=== PATIENT | male | born 1960 | race Caucasian/White ===

== ENCOUNTER → 2021-10-17 14:23 | Outpatient (BNVA) | payer OTHER, SELFPAY | PROVIDERS: Family Provider Internal Medicine; Visit Provider Podiatrist Foot & Ankle Surgery | DX: B07.0 Plantar wart (principal) | CPT/HCPCS: 17110 ==

== ENCOUNTER → 2021-11-21 14:22 | Outpatient (BNVA) | payer OTHER, SELFPAY | PROVIDERS: Family Provider Internal Medicine; Visit Provider Podiatrist Foot & Ankle Surgery | DX: B07.0 Plantar wart (principal); M79.671 Pain in right foot | CPT/HCPCS: 17110 ==

== ENCOUNTER → 2022-01-02 15:20 | Outpatient (BNVA) | payer OTHER, SELFPAY | PROVIDERS: Family Provider Internal Medicine; Visit Provider Podiatrist Foot & Ankle Surgery | DX: B07.0 Plantar wart (principal); M79.671 Pain in right foot | CPT/HCPCS: 17110 ==

== ENCOUNTER → 2022-03-26 14:45 | Outpatient (BNVA) | payer OTHER, SELFPAY | PROVIDERS: Family Provider Internal Medicine; Visit Provider Podiatrist Foot & Ankle Surgery | DX: B07.0 Plantar wart (principal) | CPT/HCPCS: 99213 ==

== ENCOUNTER → 2023-06-02 09:23 | Outpatient (BNVA) | payer OTHER, SELFPAY | PROVIDERS: Family Provider Internal Medicine; Referring Provider Family Medicine; Visit Provider Surgery | DX: Z12.11 Encounter for screening for malignant neoplasm of colon (principal) | CPT/HCPCS: 99203 ==

== ENCOUNTER 2023-07-24 08:02 | Day surgery (SDC) | payer OTHER, SELFPAY ==
[2023-07-24 08:21] VITALS: BP 127/83; PULSE 69; RESP 18; TEMP 36.6; O2SAT 97; BMI 32.5
[2023-07-24] MEDS: sodium chloride 0.9% 1,000 ML 30 ML IV (08:29)
--- NOTE | 2023-07-24 08:53 | W.PM.OPSFHP ---
Same Day Surgery H&P Indication for Procedure/HPI DATE OF PROCEDURE: July 24, 2023 CHIEF COMPLAINT/INDICATIONFOR SURGICAL PROCEDURE: need for screening colonoscopy PREOP DIAGNOSIS: need for screening colonoscopy PLANNED PROCEDURE: Operation Date: 07/24/23 09:25 Proposed Procedures p 11090 colon G0121 screen colon a risk Z12.11(Not Applicable) - Jalen Catalan MD Medications/Allergies* Home Medications Medication Instructions Recorded Confirmed Type aspirin 81 mg tablet,delayed 81 mg PO DAILY 10/17/21 07/22/23 History release (Adult Aspirin Regimen) ibuprofen 800 mg tablet 800 mg PO Q6H PRN Pain 06/02/23 07/22/23 History Allergies/Adverse Reactions Allergy/AdvReac Type Severity Reaction Status Date / Time Penicillins Allergy resp Verified 07/22/23 09:31 distress Current Medications: Generic Name Dose Route Start Last Admin Trade Name Freq PRN Reason Stop Dose Admin Sodium Chloride 1,000 mls @ 30 mls/hr 07/24/23 08:15 07/24/23 08:29 Sodium Chloride 0.9% IV 07/25/23 08:14 30 mls/hr .Q24H LORNE Administration Pertinent Exam Findings alert, oriented x 3, clear to auscultation bilaterally and regular rate & rhythm Recommendations Surgery/Procedure today Coding Level of Care Code Acute Code for Chg Fwd
--- NOTE | 2023-07-24 08:58 | ANES.PREANE2 ---
Pre-Anesthetic Assessment Height/Weight: Height 1.75 m Weight 99.79 kg Temp Pulse Resp BP Pulse Ox O2 Del Method 97.9 F 69 18 127/83 97 Room Air 07/24/23 08:21 07/24/23 08:21 07/24/23 08:21 07/24/23 08:21 07/24/23 08:21 07/24/23 08:21 Preop Diagnosis: need for screening colonoscopy Operation Date: 07/24/23 09:25 Proposed Procedures p 94537 colon G0121 screen colon a risk Z12.11(Not Applicable) - Jalen Catalan MD Familial anesthetic complications: none Was Beta Tulio taken within 24 hours: N/A Was Clonidine taken within 24 hours: N/A Last intake: Intake Last Liquid Date 07/23/23 Last Liquid Time 22:30 Last Solid Date 07/22/23 Last Solid Time 20:00 Social No alcohol and No tobacco Exam alert, oriented x 3, clear to auscultation bilaterally and regular rate & rhythm Airway Submandibular: within normal limits Cervical ROM: within normal limits Mallampati: Class I Dentition: full Pulmonary Sleep Apnea (Cpap) CV/HEM None reported None reported Hepatic None reported GI None reported Metabolic None reported Musc/skel Lower Back Pain and Osteoarthritis/DJD history of back surgeries. 1 cervical and 1 cyst removal in lumbar Neuropsych None reported Anesthetic Plan ASA status: 2 Anesthesia: MAC Risk of > 500 ml blood loss (7ml/kg in children): No Medications/Allergies Home Medications Medication Instructions Recorded Confirmed Last Taken Type aspirin 81 mg tablet,delayed 81 mg PO DAILY 10/17/21 07/22/23 07/22/23 History release (Adult Aspirin Regimen) fluorouracil 5 % topical cream 1 applic topical DAILY 4 weeks #40 10/17/21 07/24/23 07/24/23 Rx (Efudex) grams 0700 ibuprofen 800 mg tablet 800 mg PO Q6H PRN Pain 06/02/23 07/22/23 07/22/23 History Allergies Allergy/AdvReac Type Severity Reaction Status Date / Time Penicillins Allergy resp Verified 07/22/23 09:31 distress Current Medications Generic Name Dose Route Start Last Admin Trade Name Freq PRN Reason Stop Dose Admin Sodium Chloride 1,000 mls @ 30 mls/hr 07/24/23 08:15 07/24/23 08:29 Sodium Chloride 0.9% IV 07/25/23 08:14 30 mls/hr .Q24H L[facility]NE Administration Data Anesthesia Cardiac Studies: No Data to Display
[2023-07-24 10:10] VITALS: BP 105/71; PULSE 84; RESP 18; TEMP 36.6; O2SAT 94
[2023-07-24 10:26] VITALS: BP 105/82; PULSE 78; RESP 18; O2SAT 94
--- NOTE | 2023-07-24 10:35 | ANE.PACU2 ---
Inpatient post-anesthesia follow up: Airway intact: Yes Vital signs: Temperature 97.8 F Pulse Rate 78 Respiratory Rate 18 Blood Pressure 105/82 Pulse Oximetry 94 Oxygen Delivery Me thod Room Air Oxygen Flow Rate Fraction of Inspir ed Oxygen Hydration adequate: Yes Nausea and vomiting: No Pain level: 1 Mental status: Baseline
== END 2023-07-24 10:35 | disposition home or self-care (01) ==
PROVIDERS: PCP Family Medicine; Visit Provider Surgery
PROC: 0DJD8ZZ Inspection of Lower Intestinal Tract, Via Natural or Artificial Opening Endoscopic (ICD-10-PCS; CPT 45378; principal; 2023-07-24 09:25)
DX: Z12.11 Encounter for screening for malignant neoplasm of colon (principal); Z79.82 Long term (current) use of aspirin; G47.30 Sleep apnea, unspecified
CPT/HCPCS: 45378; J2704; J7030